=== PATIENT | female | born 1995 | race Two or more races ===

== ENCOUNTER 2019-12-29 01:40 | Emergency (ER) | payer OTHER ==
[~2019-12-29] VITALS: Ht 157.5 cm; Wt 77.1 kg
[2019-12-29] MEDS ORDERED: ZOFRAN8 MG PO (10:37)
== END 2019-12-29 11:59 | disposition home or self-care (01) ==
LOC: ER 01:40
DX: F10.10 Alcohol abuse, uncomplicated (principal); F12.90 Cannabis use, unspecified, uncomplicated